=== PATIENT | male | born 1960 | race Asian ===

== ENCOUNTER 2022-08-15 12:34 | Outpatient (CLI) | payer BC | END 2022-08-15 12:35 | disposition home or self-care (01) | LOC: SCSRAD 12:34 | DX: M54.6 Pain in thoracic spine (principal); M94.0 Chondrocostal junction syndrome [Tietze]; R25.2 Cramp and spasm; R06.00 Dyspnea, unspecified; R00.2 Palpitations; F17.200 Nicotine dependence, unspecified, uncomplicated | CPT/HCPCS: 71046 ==

== ENCOUNTER 2022-11-20 14:00 | Emergency (ER) | payer BC | END 2022-11-20 14:55 | disposition home or self-care (01) | LOC: ERS 14:00 | DX: S29.011A Strain of muscle and tendon of front wall of thorax, initial encounter (principal); I10 Essential (primary) hypertension; E78.00 Pure hypercholesterolemia, unspecified; X58.XXXA Exposure to other specified factors, initial encounter | CPT/HCPCS: 71045; 93005 ==